=== PATIENT | male | born 2000 | race Caucasian/White ===

== ENCOUNTER 2021-11-01 21:23 | Emergency (ER) | payer BC ==
[~2021-11-01] VITALS: Ht 172.7 cm; Wt 63.5 kg
[2021-11-01 21:23] VITALS: BP 132/87
[2021-11-01] MEDS ORDERED: BACITRACIN OINT 500 UNITS/GM PKT TP ONE (22:35)
[2021-11-01] MEDS ORDERED: LIDOCAINE/EPI 1% 1:100000 20 ML VIAL INJ ONE (22:35)
[2021-11-01 23:02] VITALS: BP 132/87
== END 2021-11-01 23:02 | disposition home or self-care (01) ==
LOC: MED 21:23
DX: S01.112A Laceration without foreign body of left eyelid and periocular area, initial encounter (principal); W25.XXXA Contact with sharp glass, initial encounter; Y93.89 Activity, other specified; Y92.89 Other specified places as the place of occurrence of the external cause; Y99.8 Other external cause status
CPT/HCPCS: 12011; 99283; J2001

== ENCOUNTER 2021-11-02 23:03 | Emergency (ER) | payer BC ==
[~2021-11-02] VITALS: Ht 172.7 cm; Wt 63.5 kg
[2021-11-02 23:22] VITALS: BP 118/66
--- NOTE | 2021-11-02 23:22 | NUR ---
PT TO BED 2 VIA W/C
--- NOTE | 2021-11-02 23:30 | NUR ---
BIB FRIENDS WITH C/C OF ETOH. FRIENDS STATE THEY WERE CONCERNED BECAUSE PT WAS NOT WAKING UP. PT IS AWAKE AND ALERT AT THIS TIME, A&OX3 PERSON, PLACE AND TIME. STATES HE DOES NOT KNOW HOW MUCH HE DRANK. LAC ON LEFT EYE WAS ABOUT 2DAYS AGO, DID NOT OCCUR WHILE INTOXICATED. UNKNOWN IF FALLEN. PT DENIES INJURIES. ELIS [id number] FRIEND THAT CAN [employer] TOUR GUIDE PT. DENIES HX, RX AND ALLERGIES
--- NOTE | 2021-11-02 23:50 | NUR ---
DR WINTER AT BEDSIDE FOR EXAM
--- NOTE | 2021-11-03 00:39 | NUR ---
RESTING IN BED WITH EYES CLOSED, RESPIRATIONS REGULAR AND UNLABORED
--- NOTE | 2021-11-03 04:00 | NUR ---
RESTING QUIETLY WITH EYES CLOSED. RESPIRATIONS REGULAR AND UNLABORED
[2021-11-03 05:30] VITALS: BP 118/66
--- NOTE | 2021-11-03 05:30 | NUR ---
Patient discharged with v/s stable. Written and verbal after care instructions given and explained. Patient verbalized understanding. Ambulatory with steady gait. All questions addressed prior to discharge. Advised to follow up with PMD.
== END 2021-11-03 05:30 | disposition home or self-care (01) ==
LOC: MED 23:03
DX: F10.129 Alcohol abuse with intoxication, unspecified (principal)
CPT/HCPCS: 99281

== ENCOUNTER 2021-11-07 15:11 | Emergency (ER) | payer BC ==
[~2021-11-07] VITALS: Ht 172.7 cm; Wt 63.5 kg
[2021-11-07 16:15] VITALS: BP 137/56
--- NOTE | 2021-11-07 16:19 | NUR ---
BIB SELF FOR LEFT UPPER EYELID SUTURE REMOVAL. SUTURE PLACED 5 DAYS AGO.
[2021-11-07 17:34] VITALS: BP 137/56
--- NOTE | 2021-11-07 17:34 | NUR ---
Patient discharged with v/s stable. Written and verbal after care instructions given and explained. Patient verbalized understanding. with steady gait. All questions addressed prior to discharge. Advised to follow up with PMD.
--- NOTE | 2021-11-07 19:29 | NUR ---
The patient's care was reviewed and supervised by Karla Hawkins RN.
== END 2021-11-07 17:34 | disposition home or self-care (01) ==
LOC: MED 15:11
DX: S01.112D Laceration without foreign body of left eyelid and periocular area, subsequent encounter (principal); X58.XXXD Exposure to other specified factors, subsequent encounter
CPT/HCPCS: 99281